=== PATIENT | female | born 1975 | race Caucasian/White ===

== ENCOUNTER → 2021-03-16 | Outpatient (CLI) | payer OTHER ==
[~2021-03-16] MED LIST: ATENOLOL50 M1 PO; CLARITIN10 MG PO; DAYPRO600 M1 PO; EPIPEN 2-PAK1 MG/ML MR; MEDROL DOSEPAK4 MG PO; PEPCID20 MG PO; PREDNISONE10 MG PO; VITAMIN D350 MCG PO; ZANTAC 150150 MG PO
== END | disposition home or self-care (01) ==
LOC: CARD 00:46
PROVIDERS: ATTEND Internal Medicine Cardiovascular Disease
DX: I49.3 Ventricular premature depolarization (principal); R00.2 Palpitations; I49.8 Other specified cardiac arrhythmias; R94.39 Abnormal result of other cardiovascular function study